=== PATIENT | male | born 1960 | race Caucasian/White ===

== ENCOUNTER → 2020-06-06 14:40 | Outpatient (BNVA) | payer MEDICAID, SELFPAY | PROVIDERS: PCP Family Medicine; Visit Provider Specialist | DX: G30.9 Alzheimer's disease, unspecified (principal); F02.80 Dementia in other diseases classified elsewhere, unspecified severity, without behavioral disturbance, psychotic disturbance, mood disturbance, and anxiety; G37.9 Demyelinating disease of central nervous system, unspecified | CPT/HCPCS: 96116; 99204 ==

== ENCOUNTER → 2020-12-13 15:10 | Outpatient (BNVA) | payer MEDICAID, SELFPAY | PROVIDERS: PCP Family Medicine; Visit Provider Specialist | DX: G30.9 Alzheimer's disease, unspecified (principal); F02.80 Dementia in other diseases classified elsewhere, unspecified severity, without behavioral disturbance, psychotic disturbance, mood disturbance, and anxiety; G43.711 Chronic migraine without aura, intractable, with status migrainosus; G37.9 Demyelinating disease of central nervous system, unspecified | CPT/HCPCS: 99215 ==